=== PATIENT | male | born 1960 | race Caucasian/White ===

== ENCOUNTER 2018-05-04 15:52 | Outpatient (CLI) | payer OTHER ==
--- NOTE | 2018-05-04 21:44 | RAD ---
RIGHT WRIST THREE VIEWS: 05/04/2018 FINDINGS: No major acute fracture is seen. On the oblique view, there was questionable cortical irregularity i n the medial aspect of the triquetrum. If there were pain or chronic pain in that location, it might imply old trauma here. The carpal bones are otherwise unremarkable. IMPRESSION: Equivocal prior trauma of the triquetral bone. CODE T POS: HOME
== END 2018-05-04 15:53 | disposition home or self-care (01) ==
LOC: BURRAD 15:52
PROVIDERS: ATTEND Family Medicine
DX: M25.531 Pain in right wrist (principal)